=== PATIENT | male | born 1995 | race Caucasian/White ===

== ENCOUNTER 2017-10-06 22:51 | Emergency (ER) | payer BC ==
[2017-10-07] LABS: ABS Basophils 0 10^3/ul (0-0.2); ABS Eosinophils 0.3 10^3/ul (0-0.6); ABS Lymphocytes 2.6 10^3/ul (1.0-4.8); ABS Monocytes 0.6 10^3/ul (0-0.8); ABS Neutrophils 3.8 10^3/ul (1.5-7.7); ABS Nucleated RBC 0 10^3/ul; Eosinophil % 4.2 % (0-6); Hematocrit 38 % (42-52); Hemoglobin 12.6 g/dl (14.0-18.0); Lymphocyte % 35.2 % (25-47); Mean Corpuscular HGB Conc 34 g/dl (31-36); Mean Corpuscular Hemoglobin 27 pg (27-31); Mean Corpuscular Volume 81 fL (80-94); Mean Platelet Volume 7.4 um3 (7.4-10.4); Nucleated Red Blood Cells % 0.1; Platelet Count 278 10^3/ul (150-450); Red Blood Count 4.64 10^6/ul (4.00-5.40); Red Cell Distribution Width 13 % (10.5-15); White Blood Count 7.3 10^3/ul (3.5-10.8)
[2017-10-07 00:20] LABS: EGFR Non-African American 89.2 (>60)
[2017-10-07 03:06] VITALS: BP 110/62
--- NOTE | 2017-10-07 03:12 | ED ---
Deyvi Solis Angela, scribed for Rylee Watson MD on 10/06/17 at 2350 . Psychiatric Complaint - HPI Summary HPI Summary: This pt is a 22 y/o male presenting to [facility] c/o SI thoughts and attempt today. Pt reports he has had chest pain for 2 weeks now, but attributes it to his stress. Currently he denies chest pain. Recent stressor includes suspension today from college for being on probation. He notes he has had SI thoughts intermittently, prior to today the last time was 1 month ago. Pt reports SI today "for a brief moment but I'm just terrified." He did put a belt around his neck today. Pt does not take medications on a regular basis. He saw a therapist when he was 9 y/o, but does not remember why. Pt lives at home in [place], [place]. He goes to [employer] and works nearby. - History Of Current Complaint Chief Complaint: EDMentalHealth Time Seen by Provider: 10/06/17 23:28 Hx Obtained From: Patient Onset/Duration: Lasting Days, Still Present Timing: Days Severity Currently: Moderate Character: Depressed, Fearful Aggravating Factor(s): Recent Stress Alleviating Factor(s): Nothing Associated Signs And Symptoms: Positive: Confused Has Suicidal: Reports: Thoughts, Demonstrates Gesture. Denies: With A Plan Has Homicidal: Denies: Thoughts, With A Plan Recent Stressor(s): suspension today from [employer] for being on probation - Allergies/Home Medications Allergies/Adverse Reactions: Allergies Allergy/AdvReac Type Severity Reaction Status Date / Time No Known Allergies Allergy Verified 10/06/17 23:54 Home Medications: Home Medications NK [No Home Medications Reported] 10/06/17 [History Confirmed 10/06/17] PMH/Surg Hx/FS Hx/Imm Hx Endocrine/Hematology History: Denies: Hx Diabetes Cardiovascular History: Denies: Hx Hypertension - Surgical History Surgery Procedure, Year, and Place: appendectomy. testicle removal Infectious Disease History: No Infectious Disease History: Denies: Traveled Outside the in Last 30 Days - Family History Family History: No FHx of depression - Social History Alcohol Use: None Substance Use Type: Reports: None Smoking Status (MU): Never Smoked Tobacco Review of Systems Negative: Fever, Chills Positive: Chest Pain Respiratory: Negative Gastrointestinal: Negative Genitourinary: Negative Psychological: Other - SI thoughts, gestures, fearful Positive: Depressed. Negative: Other - HI All Other Systems Reviewed And Are Negative: Yes Physical Exam - Summary Physical Exam Summary: VITAL SIGNS: Reviewed. GENERAL: Patient is a well-developed and nourished male who is lying comfortable in the stretcher. Patient is not in any acute respiratory distress. HEAD AND FACE: No signs of trauma. No ecchymosis, hematomas or skull depressions. No sinus tenderness. EYES: PERRLA, EOMI x 2, No injected conjunctiva, no nystagmus. EARS: Hearing grossly intact. Ear canals and tympanic membranes are within normal limits. MOUTH: Oropharynx within normal limits. NECK: Supple, trachea is midline, no adenopathy, no JVD, no carotid bruit, no c- spine tenderness, neck with full ROM. CHEST: Symmetric, no tenderness at palpation LUNGS: Clear to auscultation bilaterally. No wheezing or crackles. CVS: Regular rate and rhythm, S1 and S2 present, no murmurs or gallops appreciated. ABDOMEN: Soft, non-tender. No signs of distention. No rebound no guarding, and no masses palpated. Bowel sounds are normal. EXTREMITIES: FROM in all major joints, no edema, no cyanosis or clubbing. NEURO: Alert and oriented x 3. No acute neurological deficits. Speech is normal and follows commands. SKIN: Dry and warm Triage Information Reviewed: Yes Vital Signs On Initial Exam: Initial Vitals Temp Pulse Resp BP Pulse Ox 98.3 F 75 18 118/65 99 10/06/17 22:57 10/06/17 22:57 10/06/17 22:57 10/06/17 22:57 10/06/17 22:57 Vital Signs Reviewed: Yes Diagnostics - Vital Signs Vital Signs Temp Pulse Resp BP Pulse Ox 10/06/17 22:57 98.3 F 75 18 118/65 99 - Laboratory Result Diagrams: 10/06/17 23:50 10/06/17 23:50 Lab Statement: Any lab studies that have been ordered have been reviewed, and results considered in the medical decision making process. - Radiology Chest XR Xray Interpretation: No Acute Changes - no acute process. Pending official radiology report. Radiology Interpretation Completed By: ED Physician Course/Dx - Course Assessment/Plan: Pt is a 22 y/o male who presents for SI thoughts and attempt today. Pt reports he has had chest pain for 2 weeks now, but attributes it to his stress. Currently he denies chest pain. Recent stressor includes recent suspension from college for being on probation. He notes he has had SI thoughts intermittently, prior to today the last time was 1 month ago. Pt reports SI today "for a brief moment but I'm just terrified." He did put a belt around his neck today. Test results without any significant abnormalities except for toxicology positive for cannabinoids. Chest XR is negative. Pt is medically cleared at 00:58. He is waiting for a mental health evaluation. Pt was evaluated by the mental health [facility] and his case was reviewed by Dr. Warner , psychiatrist. Dr. Warner recommends to discharge the pt home with outpatient follow up at [facility]. - Differential Dx/Clinical Impression Provider Diagnosis: Depression Discharge - Sign-Out/Discharge Documenting (check all that apply): Discharge/Admit/Transfer - Discharge - Discharge Plan Condition: Stable Disposition: HOME Referrals: No Primary Care Phys,NOPCP [Primary Care Provider] - The documentation as recorded by the Deyvi moya Angela accurately reflects the service I personally performed and the decisions made by me, Rylee Watson MD.
--- NOTE | 2017-10-07 07:33 | RAD ---
INDICATION: Chest pain COMPARISON: None TECHNIQUE: PA and lateral dual-energy views were obtained. FINDINGS: Bones/Soft Tissues: There are no acute bony findings. Cardiomediastinal: The cardiomediastinal silhouette is normal. Lungs: There are no infiltrates. Pleura: There are no pleural effusions. Other: None IMPRESSION: NORMAL CHEST.
== END 2017-10-07 03:02 | disposition home or self-care (01) ==
LOC: ED 22:51
DX: F32.9 Major depressive disorder, single episode, unspecified (principal); R45.851 Suicidal ideations; R07.9 Chest pain, unspecified
CPT/HCPCS: 36415; 71046; 80053; 80307; 80320; 80329; 84443; 85025; 99285; G0480